=== PATIENT | female | born 1970 | race Two or more races ===

== ENCOUNTER 2018-07-02 07:51 | Emergency (ER) | payer OTHER ==
[~2018-07-02] VITALS: Ht 162.6 cm; Wt 76.7 kg
[~2018-07-02 07:51] MED LIST: BACTROBAN OINT22 GM TP; GILTUSS TR TAB1 EACH PO; GLIMEPIRIDE 2 MG PO; LANTUS SOLOSTAR3 ML SUBCUTANEO; METFORMIN HCL500 MG; METFORMIN HCL500 MG PO; NORVASC5 MG PO; ZITHROMAX500 MG PO; ZYRTEC10 MG PO
== END 2018-07-02 10:17 | disposition home or self-care (01) ==
LOC: ER 07:51
DX: H10.89 Other conjunctivitis (principal); H20.9 Unspecified iridocyclitis

== ENCOUNTER 2020-06-16 11:00 | Outpatient (CLI) | payer OTHER | END 2020-06-16 15:00 | disposition home or self-care (01) | LOC: PPH VACUNA 11:00 | DX: Z23 Encounter for immunization (principal) ==

== ENCOUNTER 2021-06-25 08:00 | Outpatient (CLI) | payer OTHER | END 2021-06-25 08:30 | disposition home or self-care (01) | LOC: PPH VACUNA 08:00 | PROVIDERS: ATTEND Emergency Medicine Pediatric Emergency Medicine | DX: Z23 Encounter for immunization (principal) ==

== ENCOUNTER 2021-07-23 08:39 | Outpatient (CLI) | payer OTHER | END 2021-07-23 08:44 | disposition home or self-care (01) | LOC: PPH VACUNA 08:39 | PROVIDERS: ATTEND Emergency Medicine Pediatric Emergency Medicine | DX: Z23 Encounter for immunization (principal) ==

== ENCOUNTER 2022-06-22 08:42 | Outpatient (CLI) | payer OTHER | END 2022-06-22 08:47 | disposition home or self-care (01) | LOC: PPH VACUNA 08:42 | PROVIDERS: ATTEND Emergency Medicine Pediatric Emergency Medicine | DX: Z23 Encounter for immunization (principal) ==

== ENCOUNTER 2023-06-09 11:57 | Outpatient (CLI) | payer OTHER | END 2023-06-09 12:07 | disposition home or self-care (01) | LOC: PPH VACUNA 11:57 | PROVIDERS: ATTEND Emergency Medicine Pediatric Emergency Medicine | DX: Z23 Encounter for immunization (principal) ==

== ENCOUNTER 2024-08-05 11:40 | Outpatient (CLI) | payer OTHER | END 2024-08-05 11:50 | disposition home or self-care (01) | LOC: PPH VACUNA 11:40 | PROVIDERS: ATTEND Emergency Medicine Pediatric Emergency Medicine | DX: Z23 Encounter for immunization (principal) ==

== ENCOUNTER 2025-07-22 13:45 | Outpatient (CLI) | payer OTHER | END 2025-07-22 13:55 | disposition home or self-care (01) | LOC: PPH VACUNA 13:45 | PROVIDERS: ATTEND Emergency Medicine Pediatric Emergency Medicine | DX: Z23 Encounter for immunization (principal) ==